=== PATIENT | female | born 1995 | race American Indian/Alaskan Native ===

== ENCOUNTER 2017-05-31 16:23 | Inpatient (IN) | payer MEDICAID ==
[2017-05-31] MEDS ORDERED: LACTATED RINGERS 500 ML IV ONE (16:49)
[2017-05-31] MEDS ORDERED: LACTATED RINGERS 1,000 ML IV SCH (17:00)
[2017-05-31 17:14] LABS: Bacteria,Urine 2+ /HPF (Negative); Bilirubin,Urine NEG (Negative); Blood,Urine SM (Negative); Ketones,Urine 80 mg/dL (Negative); Leukocyte Esterase,Urine LG (Negative); Mucus,Urine 3+ /HPF; Nitrite,Urine NEG (Negative)
[2017-05-31 17:56] LABS: Hematocrit 21.2 % (30.3-42.9); Hemoglobin 7.4 gm/dl (10.1-14.3); Mean Corpuscular HGB Conc 35 % (30-34); Mean Corpuscular Hemoglobin 28 pg (28-32); Mean Corpuscular Volume 81 fl (79-97); Platelet Count 206 K/mm3 (140-440); Red Blood Count 2.62 M/mm3 (3.65-5.03); Red Cell Distribution Width 13.3 % (13.2-15.2); White Blood Count 6.5 K/mm3 (4.5-11.0)
[2017-05-31] MEDS ORDERED: ZOFRAN IV ONE (18:00)
[2017-05-31 18:05] LABS: Albumin 3.1 g/dL (3.9-5); Albumin/Globulin Ratio 0.9 %; Alkaline Phosphatase 64 units/L (35-129); Anion Gap 20 mmol/L; Blood Urea Nitrogen 5 mg/dL (7-17); Calcium 7.4 mg/dL (8.4-10.2); Carbon Dioxide 22 mmol/L (22-30); Chloride 92.5 mmol/L (98-107); Glucose 71 mg/dL (65-100); Sodium 132 mmol/L (137-145); Total Protein 6.7 g/dL (6.3-8.2)
[2017-05-31 18:19] LABS: Alanine Aminotransferase < 5 units/L (7-56)
[2017-05-31 18:20] LABS: Potassium 2.4 mmol/L (3.6-5.0)
[2017-05-31] MEDS ORDERED: ROBITUSSIN DM PO PRN (18:27)
[2017-05-31] MEDS ORDERED: ALUM-MAG HYDROX-SIMETH 200-200-20MG/5ML PO PRN (18:27)
[2017-05-31] MEDS ORDERED: BENADRYL PO PRN (18:27)
[2017-05-31] MEDS ORDERED: ZOFRAN IV PRN (18:27)
[2017-05-31] MEDS ORDERED: DEEP SEA NS PRN (18:27)
[2017-05-31] MEDS ORDERED: MYLICON PO PRN (18:27)
[2017-05-31] MEDS ORDERED: AMBIEN PO PRN (18:27)
[2017-05-31] MEDS ORDERED: TYLENOL PO PRN (18:27)
[2017-05-31] MEDS ORDERED: COLACE PO PRN (18:27)
--- NOTE | 2017-05-31 19:02 | History and Physical Report ---
History of Present Illness Date of examination: 05/31/17 Chief complaint: n/v x 3 days, sent from office. History of present illness: EDC Confirmation: 08/03/2017 Past History : 2 Term Births: 0 Premature Births: 1 Living Children: 1 Para: 1 Mult. Births: 0 Prev : 0 Prev. attempt? 0 Aborta: 0 Elect. Ab: 0 Spont. 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 of genital herpes: no Partner hx. of genital herpes: no Rash, Viral, or Febrile illness since last LMP? no Varicella/Chicken Pox Status: Immunized TB Risk: no Genetic History Congenital Heart Defect: Mom: no Dad: no Sheila Disease: Mom: no Dad: no Thalassemia Mom: no Dad: no Neural Tube Defect Mom: no Dad: no Down's Syndrome Mom: no Dad: no Juan R-Sachs Mom: no Dad: no Sickle Cell Disease/Trait Mom: no Dad: no Hemophilia Mom: no Dad: no Muscular Dystrophy Mom: no Dad: no Cystic Fibrosis Mom: no Dad: no Cierra Chorea Mom: no Dad: no Mental Retardation Mom: no Dad: no Fragile X Mom: no Dad: no Other Genetic/Chromosomal Disorder Mom: no Dad: no Child w/other defect Mom: no Dad: no Enviromental Exposures Xray Exposure: no Medication, drug, or alcohol use since LMP: no Chemical/Other Exposure: no Exposure to Cat Liter: no Hx of Parvovirus (Fifth Disease): no Occupational Exposure to Children: none Active Medications (reviewed today): None Current Allergies (reviewed today): No known allergies Past History - Obstetrical History Expected Date of Delivery: 08/02/17 Actual Gestation: 31 Week(s) 0 Day(s) : 2 Para: 1 Hx # Term Pregnancies: 0 Number of Pregnancies: 1 Spontaneous Abortions: 0 Induced : 0 Number of Living Children: 1 Medications and Allergies Allergies Allergy/AdvReac Type Severity Reaction Status Date / Time No Known Allergies Allergy Unverified 05/31/17 16:49 Active Meds: Active Medications Acetaminophen (Tylenol) 650 mg PO Q4H PRN PRN Reason: Pain MILD(1-3)/Fever >100.5/BONNER Al Hydrox/Mg Hydrox/Simethicone (Alum-Mag Hydrox-Simeth 204-665-18jm/5ml) 30 ml PO Q6H PRN PRN Reason: Indigestion Diphenhydramine HCl (Benadryl) 25 mg PO Q6H PRN PRN Reason: Itching Docusate Sodium (Colace) 100 mg PO Q12H PRN PRN Reason: Constipation Guaifenesin (Robitussin Dm) 10 ml PO Q6H PRN PRN Reason: Cough Lactated Ringer's (Lactated Ringers) 1,000 mls @ 125 mls/hr IV DIRECT [place] Folic Acid 1 mg/ Multivitamins /Minerals 10 ml/ Thiamine HCl 100 mg/ Sodium Chloride 1,000 mls @ 125 mls/hr IV .BY DURATION ENID Sodium Chloride (Nacl 0.9% 1000 Ml) 1,000 mls @ 125 mls/hr IV .BY DURATION EN[place] Potassium Chloride (Kcl 10meq/100ml) 10 meq in 100 mls @ 100 mls/hr IV Q1H [place] Stop: 05/31/17 23:29 Ondansetron HCl (Zofran) 4 mg IV Q6H PRN PRN Reason: Nausea And Vomiting Simethicone (Mylicon) 80 mg PO Q6H PRN PRN Reason: Gas pain Sodium Chloride (Deep Sea) 2 spray NS Q4H PRN PRN Reason: Congestion Zolpidem Tartrate (Ambien) 10 mg PO ONCE PRN PRN Reason: Sleep Review of Systems Constitutional: weight loss, weakness, lethargy, poor appetite, no fever, no chills, no sweats, no chronic pain - Vital Signs Vital signs: Vital Signs Pulse Pulse Ox 115 H 98 05/31/17 16:41 05/31/17 16:41 Temp Pulse Resp BP Pulse Ox 99 F 100 H 16 95/53 98 05/31/17 17:46 05/31/17 17:51 05/31/17 17:46 05/31/17 17:51 05/31/17 17:36 - Physical Exam Breasts: Positive: normal Cardiovascular: Regular rate Lungs: Positive: Clear to auscultation, Normal air movement Abdomen: Positive: normal appearance, soft, normal bowel sounds Genitourinary (Female): Positive: normal external genitalia Vulva: both: normal Uterus: Positive: normal size, normal contour Extremities: Positive: normal Deep Tendon Reflex Grade: Normal +2 - Obstetrical FHR: category 2 Uterine Contraction Monitor Mode: External Uterine Contraction Pattern: Absent Uterine Tone Measurement Phase: Resting Results Result Diagrams: 05/31/17 17:20 05/31/17 17:20 Abnormal lab results 05/31/17 05/31/17 05/31/17 Range/Units 16:45 17:20 17:20 RBC 2.62 L (3.65-5.03) M/mm3 Hgb 7.4 L (10.1-14.3) gm/dl Hct 21.2 L (30.3-42.9) % MCHC 35 H (30-34) % Sodium 132 L (137-145) mmol/L Potassium 2.4 L* (3.6-5.0) mmol/L Chloride 92.5 L (98-107) mmol/L BUN 5 L (7-17) mg/dL Creatinine 0.5 L (0.7-1.2) mg/dL Calcium 7.4 L (8.4-10.2) mg/dL ALT < 5 L (7-56) units/L Albumin 3.1 L (3.9-5) g/dL Urine WBC (Auto) 72.0 H (0.0-6.0) /HPF All other labs normal. Assessment and Plan 21y/o @ 30 weeks admitted for nausea & vomiting x 3 days, dehydration and electrolyte imbalance. complicated by late transfer of PNC @ 26 weeks and a hx of labor @ 26 weeks w/ previous . Patient referred to [facility] but noncompliant with going. Neg CVAT, WBC NL, Urine culture in progress. No ctx, fht reassuring for for gestation. Dr. Grady consulted. Orders in EMR - Patient Problems (1) 30 weeks gestation of Current Visit: Yes Status: Acute (2) Hypokalemia Current Visit: Yes Status: Acute Plan to address problem: K-run x 4 banana bag recheck potassium in AM (3) Nausea and vomiting in Current Visit: Yes Status: Acute Plan to address problem: rehydrate antiemetic advance diet as tolerated
[2017-05-31] MEDS ORDERED: 1: FOLVITE 1 MG, INFUVITE 10 ML, VITAMIN B-1 100 MG in NACL 0.9% 1000 ML 988.8 ML 2: NA IV SCH (20:00)
[2017-05-31 21:09] LABS: Urine Drugs of Abuse Note Disclamer
[2017-05-31] MEDS: KCL 10MEQ/100ML 10 MEQ/100 ML BAG IV SCH (23:35)
[2017-06-01] MEDS: KCL 10MEQ/100ML 10 MEQ/100 ML BAG IV SCH ×3 (01:23→05:48)
--- NOTE | 2017-06-01 07:06 | Admit Criteria Form ---
Admission Criteria Documentation: HYPEREMESIS GRAVIDARUM Clinical Indications for Admission to Inpatient Care ([place]/check or initial the applicable condition/criteria) Admission is indicated for 1 or more of the following 1)(2)(3)(4)(5) [ ]I. Suspected serious gastrointestinal pathology (eg, acute fatty liver of , pancreatitis) as indicated by 1 or more of the following (6)(7): [ ]a) Significantly elevated serum transaminase or bilirubin (e.g., greater than 10 times normal) [ ]b) Significantly elevated bilirubin (eg greater than 4mg/dL (68 micromoles/L) [ ]c) Significantly elevated serum amylase or lipase (eg greater than 5 times normal) [ ]d) Elevated serum ammonia level [ ]e) Coagulopathy (e.g., elevated PT, PTT) [ ]f) Ascites [ ]g) Encephalopathy [X ]II. Inpatient admission required [A] rather than observation care (See use Hyperemesis Gravidarum: Observation Care as appropriate) because of 1 or more of the following (4)(5)(8): [ ]a) Hemodynamic instability [ ]b) Vomiting that is severe or persistent [ ]c) Dehydration that is severe or persistent [X ]d) Severe electrolyte abnormalities requiring inpatient care [ ]e) Metabolic disorder (e.g., hyperchloremic alkalosis) that is severe or persistent [ ]f) Acute renal failure [ ]g) Significant neurologic findings (e.g., ataxia, nysthagmus, Altered mental status that is severe or persistent) [ ]h) compromise identified [ ]i) Hydatidiformmole identified [ ]j) Other condition, treatment or monitoring requiring inpatient admission Extended stay beyond goal length of stay may be needed for(1)(20): [ ]a) Severe electrolyte disorder that persists [ ]b) Malnutrition(10) [ ]c) Acute fatty liver of (6)(7) [ ]d) Hydatidiform mole (2) [ ]e) Wernicke encephalopathy or other PARTS CLERK complication (eg, osmotic demyelination syndrome)(2)(10)(21) [ ]f) compromise The original [employer] content created by [employer] has been revised. The portions of the content which have been revised are identified through the use of italic text or in bold, and [facility] has neither reviewed nor approved the modified material. All other unmodified content is copyright [facility]. Please see references footnoted in the original [facility] edition 2017 Admission Criteria Met: Yes
--- NOTE | 2017-06-01 07:07 | Progress Note ---
Assessment and Plan Pt sound asleep on my arrival Pt difficult to arouse, pt did receive Ambien for sleep. "I'm tired.The only thing that hurts is my arm." IV infusing without redness or swelling. VSS FHR Category 1 No ctx reported by pt. AM lab report potassium 2.9. Spoke with Will start po Klor. Advance diet Plan d/ c later today - Patient Problems (1) Hypokalemia Onset Date: Unknown Current Visit: Yes Status: Acute Plan to address problem: Potassium repeat value 2.9 Will consult with and continue replacement Subjective - Subjective Date of service: 06/01/17 (pt nonverbal "I'm to sleepy.") Patient reports: movement normal Objective - Vital Signs Vital Signs: Vital Signs - 12hr 05/31/17 05/31/17 05/31/17 20:07 21:05 21:10 Temperature 97.6 F Pulse Rate 107 H 102 H Respiratory 18 Rate Blood Pressure 116/59 O2 Sat by Pulse 85 97 Oximetry 05/31/17 05/31/17 05/31/17 21:15 21:16 21:20 Temperature Pulse Rate 98 H 100 H 98 H Respiratory Rate Blood Pressure O2 Sat by Pulse 95 94 95 Oximetry 05/31/17 05/31/17 05/31/17 21:24 21:25 21:30 Temperature Pulse Rate 97 H 100 H 92 H Respiratory Rate Blood Pressure O2 Sat by Pulse 94 93 97 Oximetry 05/31/17 05/31/17 05/31/17 21:35 21:50 22:03 Temperature Pulse Rate 94 H 92 H 103 H Respiratory Rate Blood Pressure O2 Sat by Pulse 98 96 98 Oximetry 05/31/17 05/31/17 05/31/17 22:08 22:13 22:18 Temperature Pulse Rate 99 H 103 H 100 H Respiratory Rate Blood Pressure O2 Sat by Pulse 96 96 96 Oximetry 05/31/17 05/31/17 05/31/17 22:23 22:28 22:33 Temperature Pulse Rate 99 H 97 H 94 H Respiratory Rate Blood Pressure O2 Sat by Pulse 95 94 94 Oximetry 05/31/17 05/31/17 05/31/17 22:38 22:39 22:43 Temperature Pulse Rate 98 H 94 H 97 H Respiratory Rate Blood Pressure O2 Sat by Pulse 95 93 97 Oximetry 05/31/17 05/31/17 05/31/17 22:48 22:53 22:58 Temperature Pulse Rate 98 H 102 H 112 H Respiratory Rate Blood Pressure O2 Sat by Pulse 96 95 98 Oximetry 05/31/17 05/31/17 05/31/17 23:00 23:03 23:06 Temperature Pulse Rate 100 H 96 H Respiratory Rate Blood Pressure O2 Sat by Pulse 94 94 94 Oximetry 05/31/17 05/31/17 05/31/17 23:08 23:13 23:18 Temperature Pulse Rate 96 H 94 H 93 H Respiratory Rate Blood Pressure O2 Sat by Pulse 94 97 96 Oximetry 05/31/17 05/31/17 05/31/17 23:23 23:28 23:33 Temperature Pulse Rate 99 H 96 H 95 H Respiratory Rate Blood Pressure 99/55 O2 Sat by Pulse 97 97 97 Oximetry 05/31/17 05/31/17 05/31/17 23:38 23:43 23:48 Temperature Pulse Rate 97 H 95 H 108 H Respiratory Rate Blood Pressure O2 Sat by Pulse 96 97 96 Oximetry 06/01/17 06/01/17 06/01/17 00:59 01:04 01:09 Temperature Pulse Rate 120 H 110 H 108 H Respiratory Rate Blood Pressure O2 Sat by Pulse 98 96 96 Oximetry 06/01/17 06/01/17 06/01/17 01:14 01:19 01:20 Temperature Pulse Rate 90 98 H 87 Respiratory Rate Blood Pressure O2 Sat by Pulse 93 94 94 Oximetry 06/01/17 06/01/17 06/01/17 01:24 01:29 01:34 Temperature Pulse Rate 100 H 101 H 103 H Respiratory Rate Blood Pressure O2 Sat by Pulse 96 95 95 Oximetry 06/01/17 06/01/17 01:39 01:44 Temperature Pulse Rate 109 H 112 H Respiratory Rate Blood Pressure O2 Sat by Pulse 96 97 Oximetry - Exam Breasts: deferred Cardiovascular: Regular rate Lungs: Normal air movement Abdomen: Present: normal appearance Uterus: Present: normal (FH 29) FHR: category 1 Uterine Contraction Monitor Mode: External Uterine Contraction Pattern: Absent Uterine Tone Measurement Phase: Resting Extremities: normal Deep Tendon Reflex Grade: Normal +2 - Labs Labs: Abnormal Labs 05/31/17 05/31/17 05/31/17 16:45 17:20 17:20 RBC 2.62 L Hgb 7.4 L Hct 21.2 L MCHC 35 H Sodium 132 L Potassium 2.4 L* Chloride 92.5 L BUN 5 L Creatinine 0.5 L Calcium 7.4 L ALT < 5 L Albumin 3.1 L Urine WBC (Auto) 72.0 H Laboratory Results - last 24 hr 05/31/17 05/31/17 05/31/17 16:45 16:45 17:20 WBC 6.5 RBC 2.62 L Hgb 7.4 L Hct 21.2 L MCV 81 MCH 28 MCHC 35 H RDW 13.3 Plt Count 206 Sodium Potassium Chloride Carbon Dioxide Anion Gap BUN Creatinine Estimated GFR BUN/Creatinine Ratio Glucose Calcium Total Bilirubin AST ALT Alkaline Phosphatase Total Protein Albumin Albumin/Globulin Ratio Urine Color [place] Urine Turbidity Cloudy Urine pH 6.0 Ur Specific [place] 1.021 Urine Protein 100 mg/dl Urine Glucose (UA) Neg Urine Ketones 80 Urine Blood Sm Urine Nitrite Neg Urine Bilirubin Neg Urine Urobilinogen 4.0 Ur Leukocyte Esterase Lg Urine WBC (Auto) 72.0 H Urine RBC (Auto) 77.0 U Epithel Cells (Auto) 6.0 Urine Bacteria (Auto) 2+ Hyaline Casts 2 Urine Mucus 3+ Urine Opiates Screen Presumptive negative Urine Methadone Screen Presumptive negative Ur Barbiturates Screen Presumptive negative Ur Phencyclidine Scrn Presumptive negative Ur Amphetamines Screen Presumptive negative U Benzodiazepines Scrn Presumptive negative Urine Cocaine Screen Presumptive negative U Marijuana (THC) Screen Presumptive positive Drugs of Abuse Note Disclamer 05/31/17 17:20 WBC RBC Hgb Hct MCV MCH MCHC RDW Plt Count Sodium 132 L Potassium 2.4 L* Chloride 92.5 L Carbon Dioxide 22 Anion Gap 20 BUN 5 L Creatinine 0.5 L Estimated GFR > 60 BUN/Creatinine Ratio 10.00 Glucose 71 Calcium 7.4 L Total Bilirubin 0.50 AST 17 ALT < 5 L Alkaline Phosphatase 64 Total Protein 6.7 Albumin 3.1 L Albumin/Globulin Ratio 0.9 Urine Color Urine Turbidity Urine pH Ur Specific [place] Urine Protein Urine Glucose (UA) Urine Ketones Urine Blood Urine Nitrite Urine Bilirubin Urine Urobilinogen Ur Leukocyte Esterase Urine WBC (Auto) Urine RBC (Auto) U Epithel Cells (Auto) Urine Bacteria (Auto) Hyaline Casts Urine Mucus Urine Opiates Screen Urine Methadone Screen Ur Barbiturates Screen Ur Phencyclidine Scrn Ur Amphetamines Screen U Benzodiazepines Scrn Urine Cocaine Screen U Marijuana (THC) Screen Drugs of Abuse Note
[2017-06-01] MEDS ORDERED: KLOR-CON PO SCH (10:00)
[2017-06-01 12:29] VITALS: BP 99/54
--- NOTE | 2017-06-01 12:29 | Discharge Summary ---
Providers - Providers Date of Admission: 06/01/17 09:28 Date of discharge: 06/01/17 (pt d/c today with RX and instructions) Attending physician: MARYLOU PHIPPS Primary care physician: MARYLOU PHIPPS Hospitalization Condition: Good Disposition: DC-01 TO HOME OR SELFCARE - Discharge Diagnoses (1) Hypokalemia Status: Acute Comment: RX for Klor provided to pt with instructions stressed importamce of fluids and to eat a healthy diet No marijuana Core Measure Documentation - Palliative Care Palliative Care/ Comfort Measures: Not Applicable - Core Measures Any of the following diagnoses?: none - VTE Discharge Requirements Deep Vein Thrombosis/Pulmonary Embolism Present on Admission: No Has pt received <5 days of overlap therapy or INR<2.0: No Anticoagulant overlap therapy prescribed at discharge: No Contraindication No Overlap Therapy order at DC: Not Indicated - Acute [place] Discharge Requirements Aspirin at discharge: No Reason for no aspirin on DC: Medical contraindication MIRIAN/ARB for LVSD if EF <40%: No Reason for no MIRIAN/ARB: Medical contraindication Beta dario at discharge: No Reason for no beta dario on DC: Medical contraindication Statin for LDL = or >100 mg/dl on DC: Not Applicable Reason for no statin on DC: Medical contraindication - Heart Failure Discharge Requirements MIRIAN/ARB for LVSD if EF <40%: Not Applicable Reason for no MIRIAN/ARB: Medical contraindication Beta dario at discharge: No Reason for no beta dario on DC: Medical contraindication - Stroke Discharge Requirements Statin for LDL = or >70 mg/dl on DC: Not Applicable Reason for no statin on DC: Not Indicated Anticoag for atrial fib/atrial flutter: Not Applicable Reason for no anticoag for AF/F on DC: Not Indicated Antithrombotic for ischemic stroke: No Reason for no antithrombotic on DC: Not Indicated Exam - Constitutional Vitals: Temp Pulse Resp BP Pulse Ox 99.9 F H 111 H 18 100/54 94 06/01/17 10:06/01/17 10:17 06/01/17 10:06/01/17 10:06/01/17 10:17 General appearance: Present: no acute distress, well-nourished - EENT Eyes: Present: PERRL ENT: hearing intact, clear oral mucosa - Neck Neck: Present: supple, normal ROM - Respiratory Respiratory effort: normal Respiratory: bilateral: CTA - Cardiovascular Heart Sounds: Present: S1 & S2. Absent: rub, click - Extremities Extremities: pulses symmetrical, No edema Peripheral Pulses: within normal limits - Abdominal General gastrointestinal: Present: soft, non-tender, non-distended, normal bowel sounds Female genitourinary: Present: normal - Rectal Rectal Exam: deferred - Integumentary Integumentary: Present: clear, warm, dry - Musculoskeletal Musculoskeletal: gait normal, strength equal bilaterally - Psychiatric Psychiatric: appropriate mood/affect, intact judgment & insight - Neurologic Neurologic: CNII-XII intact, moves all extremities Plan Activity: no restrictions Weight Bearing Status: Full Weight Bearing Diet: regular Follow up with: MARYLOU PHIPPS MD [Primary Care Provider] - 7 Days (Please call [phone] to schedule your next appointment in 7 days. Take medications as prescribed. Drink plenty of water every day. Monitor movement. Call with concerns.) Prescriptions: Potassium Chloride [Klor-Con] 20 meq PO QDAY #30 packet
== END 2017-06-01 14:05 | disposition home or self-care (01) | DRG 781 ==
LOC: TRG 16:23 → LD 21:01 → TRG 21:36 → LD 21:36 → OBSVTOIN 06-01 09:28
PROVIDERS: ADMIT Obstetrics & Gynecology; ATTEND Obstetrics & Gynecology
DX: O99.283 Endocrine, nutritional and metabolic diseases complicating pregnancy, third trimester (principal); O21.9 Vomiting of pregnancy, unspecified; E86.0 Dehydration; E87.6 Hypokalemia; Z3A.31 31 weeks gestation of pregnancy
CPT/HCPCS: 36415; 80053; 80307; 81001; 84132; 85027; 87086; G0378; J3411; J3480; J7030; J7120